=== PATIENT | male | born 1960 | race Caucasian/White ===

== ENCOUNTER 2020-09-01 12:52 | Outpatient (RCR) | payer OTHER ==
[~2020-09-01 12:52] MED LIST: ALLEGRA 180MG180 MG PO; ASPIRIN 81M81 MG/TA2 PO; FISH OIL 1000MG1 CAP PO; NIACIN 100100 MG/TAB PO
== END 2020-09-13 | disposition home or self-care (01) ==
LOC: WSOH
DX: S29.011A Strain of muscle and tendon of front wall of thorax, initial encounter (principal); Z98.890 Other specified postprocedural states; Y99.0 Civilian activity done for income or pay

== ENCOUNTER 2020-11-02 15:39 | Outpatient (RCR) | payer OTHER | END 2020-12-28 | disposition home or self-care (01) | LOC: WSOH | DX: S70.02XA Contusion of left hip, initial encounter (principal); Z98.890 Other specified postprocedural states; Y99.0 Civilian activity done for income or pay ==

== ENCOUNTER → 2020-11-15 | Outpatient (CLI) | payer OTHER | LOC: COL.RAD | DX: S70.02XD Contusion of left hip, subsequent encounter (principal) ==

== ENCOUNTER → 2022-01-06 | Outpatient (CLI) | payer BC | LOC: COL.RAD 13:31 | DX: H53.2 Diplopia (principal) ==